=== PATIENT | female | born 1925 | race Caucasian/White ===

== ENCOUNTER 2016-11-13 15:18 | Emergency (ER) | payer MEDICARE, OTHER ==
[~2016-11-13 15:18] MED LIST: APIX2.5T PO; ATEN50TA PO; BEVA25VI IV; CALC1TAB54 PO; CARB1TAB2 PO; HYDR25TA9 PO; LEVO50TA5 PO; METO50TA2 PO; PRAM0.255 PO; SIMV20TA PO; VIT1CAPS17 PO
[2016-11-13 15:20] VITALS: BP 141/70
[2016-11-13] MEDS ORDERED: TRAM-29 PO (16:02)
[2016-11-13] MEDS ORDERED: ACYC800T PO (16:02)
[2016-11-13] MEDS ORDERED: PRED50TA PO (16:02)
[2016-11-13] MEDS ORDERED: TRAMADOL 50 MG TABLET. PO ONE (16:15)
[2016-11-13] MEDS ORDERED: ACYCLOVIR 200 MG CAPSULE PO ONE (16:15)
[2016-11-13] MEDS ORDERED: PREDNISONE 10 MG TABLET PO ONE (16:15)
[2016-11-13] MEDS ORDERED: PREDNISONE 20 MG TABLET PO ONE (16:15)
--- NOTE | 2016-11-13 16:28 | ED.ADGEN ---
Past History Past Medical History: Cancer, High Cholesterol, Hypertension, Hypothyroid, Other Past Surgical History: Appendectomy, Cholecystectomy, Hysterectomy, Other Alcohol Use: None Drug Use: None Adult General HPI HPI Patient is a 89-year-old female presents emergency Department with a pruritic, painful on her right forehead that began 2 days ago. She states that when she touches that the pain is significant. She denies any other recent illness. She denies any fevers or chills. Review of Systems Review of Systems Constitutional: Denies fever or chills [] Eyes: Denies change in visual acuity, redness, or eye pain [] HENT: Denies nasal congestion or sore throat [] Respiratory: Denies cough or shortness of breath [] Cardiovascular: No additional information not addressed in HPI [] GI: Denies abdominal pain, nausea, vomiting, bloody stools or diarrhea [] : Denies dysuria or hematuria [] Musculoskeletal: Denies back pain or joint pain [] Integument: Denies rash or skin lesions [] Neurologic: Denies headache, focal weakness or sensory changes [] Endocrine: Denies polyuria or polydipsia [] Current Medications Current Medications Current Medications Medications (Trade) Dose Ordered Sig/Sanjuanita Start Time Stop Time Status Last Admin Dose Admin Acyclovir (Zovirax) 800 mg 1X ONCE 11/13/16 16:15 11/13/16 16:16 DC Prednisone (Prednisone) 50 mg 1X ONCE 11/13/16 16:15 11/13/16 16:16 DC Tramadol HCl (Ultram) 50 mg 1X ONCE 11/13/16 16:15 11/13/16 16:16 DC Allergies Allergies Allergies Coded Allergies Type Severity Reaction Last Updated Verified Penicillins Allergy Intermediate 07/05/16 No Physical Exam Physical Exam Constitutional: Well developed, well nourished, no acute distress, non-toxic appearance. [] HENT: Normocephalic, atraumatic, bilateral external ears normal, oropharynx moist, no oral exudates, nose normal. [] Eyes: PERRLA, EOMI, conjunctiva normal, no discharge. [] Neck: Normal range of motion, no tenderness, supple, no stridor. [] Cardiovascular:Heart rate regular rhythm, no murmur [] Lungs & Thorax: Bilateral breath sounds clear to auscultation [] Abdomen: Bowel sounds normal, soft, no tenderness, no masses, no pulsatile masses. [] Skin: Warm, dry, erythematous vesicular rash forming on the right forehead consistent with shingles Extremities: No tenderness, no cyanosis, no clubbing, ROM intact, no edema. [] Neurologic: Alert and oriented X 3, normal motor function, normal sensory function, no focal deficits noted. [] Psychologic: Affect normal, judgement normal, mood normal. [] Current Patient Data Vital Signs Vital Signs Date Time Temp Pulse Resp B/P Pulse Ox O2 Delivery O2 Flow Rate FiO2 11/13/16 15:20 98.2 67 18 97 Room Air EKG EKG [] Radiology/Procedures Radiology/Procedures [] Course & Med Decision Making Course & Med Decision Making Pertinent Labs and Imaging studies reviewed. (See chart for details) The patient was given a dose of acyclovir, prednisone, and tramadol here in emergency department. She is being sent home with prescriptions for the same. She will follow-up with her doctor next week and return emergency department sooner she develops new or worsening symptoms. [] Final Impression Final Impression Shingles [] Problems: Dragon Disclaimer Dragon Disclaimer This electronic medical record was generated, in whole or in part, using a voice recognition dictation system. RYAN SIMENTAL MD Nov 13, 2016 16:28
== END 2016-11-13 16:33 | disposition home or self-care (01) ==
LOC: ER 15:18
DX: B02.9 Zoster without complications (principal); E03.9 Hypothyroidism, unspecified; I10 Essential (primary) hypertension; E78.00 Pure hypercholesterolemia, unspecified; Z88.0 Allergy status to penicillin
CPT/HCPCS: 99284; J7512

== ENCOUNTER → 2017-06-14 | Outpatient (CLI) | payer MEDICARE, OTHER ==
[~2017-06-14] MED LIST changes: +ACYC800T PO; +PRED50TA PO; +TRAM-48 PO
--- NOTE | 2017-06-14 12:41 | RAD ---
Indication: Bilateral hip pain. Time of exam 12:25 PM Femoral acetabular alignment is normal. Both femoral heads and necks are intact. The rami appear intact. No fractures are seen. Extensive postsurgical changes in the lower spine lumbar spine are noted. Impression: No acute bony abnormality is detected.
== END | disposition home or self-care (01) ==
LOC: DXRAD 12:15
PROVIDERS: ATTEND Psychiatry & Neurology Neurology
DX: M25.551 Pain in right hip (principal); M25.552 Pain in left hip; M54.30 Sciatica, unspecified side; Z98.890 Other specified postprocedural states
CPT/HCPCS: 73521